=== PATIENT | female | born 1995 | race Caucasian/White ===

== ENCOUNTER 2019-09-17 14:28 | Emergency (ER) | payer SELFPAY ==
[~2019-09-17] VITALS: Ht 160 cm; Wt 77.3 kg
[2019-09-17 14:36] VITALS: BP 128/65; Ht 160 cm; Wt 77.3 kg
[2019-09-17 15:13] LABS: BASOPHILS 0.1 % (0-2); EOSINOPHILS 0.7 % (0-7); HEMATOCRIT 37.8 % (36.0-48.0); HEMOGLOBIN 13.4 g/dL (12-16); IMMATURE GRANULOCYTES 0.1 % (0-5); LYMPHOCYTES 23.4 % (15-50); MCH 29.3 pg (26.0-34.0); MCHC 35.4 g/dL (31.0-37.0); MCV 82.7 fL (80.0-100.0); MEAN PLATELET VOLUME 10.3 fL (7.4-10.4); MONOCYTES 7.4 % (2-11); NEUTROPHILS 68.3 % (40-80); PLATELET COUNT 212 10x3/uL (130-400); RBC 4.57 10x6/uL (4.00-5.40); RDW 13.5 % (11.5-14.5); WBC 9.6 10x3/uL (4.8-10.8)
[2019-09-17 15:27] LABS: CALC OSMOLALITY 277 mosm/kg (275-300); CALCIUM 8.8 mg/dL (8.5-10.1); CARBON DIOXIDE 27.4 mmol/L (21.0-32.0); CHLORIDE - SERUM 103 mmol/L (98-107); CREATININE - SERUM 0.7 mg/dL (0.6-1.3); GLUCOSE 108 mg/dL (74-106); POTASSIUM - SERUM 3.8 mmol/L (3.5-5.1); SODIUM 139 mmol/L (136-145); UREA NITROGEN 11 mg/dL (7-18); eGFR NON AFRICAN AMERICAN > 90 mL/min (90-120)
[2019-09-17 15:59] LABS: ALBUMIN 3.6 g/dL (3.4-5.0); ALKALINE PHOSPHATASE 42 U/L (30-120); ALT (SGPT) 22 U/L (10-68); BILIRUBIN - TOTAL 0.28 mg/dL (0.2-1.3); HCG - QUANTITATIVE (MATERNAL) 19651 mIU/mL; PROTEIN - SERUM 7.2 g/dL (6.4-8.2)
[2019-09-17 16:23] LABS: BILIRUBIN NEGATIVE (NEGATIVE); GLUCOSE NEGATIVE (NEGATIVE); KETONE NEGATIVE (NEGATIVE); NITRITE NEGATIVE (NEGATIVE); UROBILINOGEN NORMAL (NORMAL)
[2019-09-17 16:30] LABS: BACTERIA FEW /hpf (NEGATIVE); EPITHELIAL CELLS 0-5 /hpf (0-5); RED CELLS - URINE 25-50 /hpf (0-5); WHITE CELLS - URINE 0-5 /hpf (NEGATIVE)
== END 2019-09-17 18:10 | disposition left against medical advice (07) ==
LOC: D.ER 14:28
PROVIDERS: Emergency Medicine
DX: O26.891 Other specified pregnancy related conditions, first trimester (principal); Z3A.08 8 weeks gestation of pregnancy; M54.5 Low back pain; R10.30 Lower abdominal pain, unspecified; Z53.21 Procedure and treatment not carried out due to patient leaving prior to being seen by health care provider

== ENCOUNTER 2019-09-17 18:29 | Emergency (ER) | payer SELFPAY ==
[~2019-09-17] VITALS: Ht 160 cm; Wt 78.2 kg
[2019-09-17 18:36] VITALS: Ht 160 cm; Wt 78.2 kg
[2019-09-17 19:55] VITALS: BP 118/72
== END 2019-09-17 19:55 | disposition home or self-care (01) ==
LOC: D.ER 18:29
DX: O20.0 Threatened abortion (principal); Z3A.00 Weeks of gestation of pregnancy not specified; R10.30 Lower abdominal pain, unspecified; N93.9 Abnormal uterine and vaginal bleeding, unspecified

== ENCOUNTER 2019-09-20 17:10 | Emergency (ER) | payer SELFPAY ==
[~2019-09-20] VITALS: Ht 160 cm; Wt 79.1 kg
[2019-09-20 17:19] VITALS: Ht 160 cm; Wt 79.1 kg
[2019-09-20 18:44] VITALS: BP 121/59
== END 2019-09-20 19:06 | disposition home or self-care (01) ==
LOC: D.ER 17:10
DX: O26.90 Pregnancy related conditions, unspecified, unspecified trimester (principal); Z3A.01 Less than 8 weeks gestation of pregnancy

== ENCOUNTER 2019-09-23 12:07 | Emergency (ER) | payer SELFPAY ==
[~2019-09-23] VITALS: Ht 160 cm; Wt 79.1 kg
[2019-09-23 12:40] VITALS: BP 116/71; Ht 160 cm; Wt 79.1 kg
== END 2019-09-25 07:16 | disposition left against medical advice (07) ==
LOC: D.ER 12:07
DX: O20.0 Threatened abortion (principal); N93.9 Abnormal uterine and vaginal bleeding, unspecified; Z53.29 Procedure and treatment not carried out because of patient's decision for other reasons; Z3A.00 Weeks of gestation of pregnancy not specified

== ENCOUNTER 2019-11-14 09:00 | Emergency (ER) | payer MEDICAID ==
[~2019-11-14] VITALS: Ht 160 cm; Wt 83.6 kg
[2019-11-14 09:14] VITALS: BP 137/71; Ht 160 cm; Wt 83.6 kg
[2019-11-14] MEDS ORDERED: PHENERGAN25 M1 PO (09:16)
[2019-11-14 09:33] LABS: BASOPHILS 0.1 % (0-2); EOSINOPHILS 0.6 % (0-7); HEMATOCRIT 35.3 % (36.0-48.0); HEMOGLOBIN 12.4 g/dL (12-16); IMMATURE GRANULOCYTES 0.2 % (0-5); LYMPHOCYTES 18.8 % (15-50); MCH 28.4 pg (26.0-34.0); MCHC 35.1 g/dL (31.0-37.0); MCV 80.8 fL (80.0-100.0); MEAN PLATELET VOLUME 10.9 fL (7.4-10.4); NEUTROPHILS 74.3 % (40-80); PLATELET COUNT 187 10x3/uL (130-400); RBC 4.37 10x6/uL (4.00-5.40); RDW 13.3 % (11.5-14.5)
[2019-11-14 09:39] LABS: CALC OSMOLALITY 269 mosm/kg (275-300); CALCIUM 9.4 mg/dL (8.5-10.1); CARBON DIOXIDE 26.7 mmol/L (21.0-32.0); CHLORIDE - SERUM 104 mmol/L (98-107); CREATININE - SERUM 0.5 mg/dL (0.6-1.3); GLUCOSE 93 mg/dL (74-106); POTASSIUM - SERUM 3.9 mmol/L (3.5-5.1); SODIUM 136 mmol/L (136-145); UREA NITROGEN 8 mg/dL (7-18); eGFR NON AFRICAN AMERICAN > 90 mL/min (90-120)
[2019-11-14 09:43] LABS: HCG SERUM POSITIVE (NEGATIVE)
[2019-11-14 10:08] LABS: ALBUMIN 3.1 g/dL (3.4-5.0); ALKALINE PHOSPHATASE 42 U/L (30-120); ALT (SGPT) 17 U/L (10-68); BILIRUBIN - TOTAL 0.32 mg/dL (0.2-1.3); HCG - QUANTITATIVE (MATERNAL) 64170 mIU/mL; PROTEIN - SERUM 6.9 g/dL (6.4-8.2)
[2019-11-14 10:43] LABS: BACTERIA FEW /hpf (NEGATIVE); BILIRUBIN NEGATIVE (NEGATIVE); EPITHELIAL CELLS 0-5 /hpf (0-5); GLUCOSE NEGATIVE (NEGATIVE); KETONE NEGATIVE (NEGATIVE); NITRITE NEGATIVE (NEGATIVE); RED CELLS - URINE >50 /hpf (0-5); UROBILINOGEN NORMAL (NORMAL); WHITE CELLS - URINE RARE /hpf (NEGATIVE)
== END 2019-11-14 14:08 | disposition home or self-care (01) ==
LOC: D.ER 09:00
PROVIDERS: Family Medicine
DX: O46.92 Antepartum hemorrhage, unspecified, second trimester (principal); Z3A.13 13 weeks gestation of pregnancy; R10.30 Lower abdominal pain, unspecified